=== PATIENT | female | born 1980 | race Caucasian/White ===

== ENCOUNTER → 2025-03-25 18:00 | Outpatient (CLI) | payer OTHER, SELFPAY ==
--- NOTE | 2025-03-25 18:03 | DI.MRI.S_ITS ---
PROCEDURE: MR FOOT LT WO/W CON INDICATIONS: Zina ganglioin cyst TECHNIQUE: Multiphasic, multisequence MRI of the forefoot was performed, before and after intravenous contrast administration. COMPARISON: [facility], RG, FOOT COMP MIN 3VW (LT), 01/11/2025, 18:32. FINDINGS: Image quality: Excellent. Bones and joints: Mild marrow edema of the fibula hallucal sesamoid, representing sesamoiditis. Mild degenerative changes of the 2nd tarsometatarsal, and the intermediate cuneiform and the navicular articulation, with mild subchondral marrow edema. No acute fracture. Soft tissues: Mild thickening of the central cord of the plantar fascia, partially visualized, raising concern for plantar fasciitis. The flexors, and the extensor tendons are unremarkable. Muscles are normal in signal. The Lisfranc ligament is intact. Mild 1st intermetatarsal bursitis. No Wan's neuroma. No ganglion cyst. IMPRESSION: 1. Mild fibula hallucal sesamoiditis. 2. Mild degenerative changes in the midfoot. 3. Findings concerning for plantar fasciitis, partially visualized. 4. Mild 1st intermetatarsal bursitis. 5. No ganglion cyst. Dictated by: Christine Muller M.D. on 03/26/2025 at 10:15 Approved by: Christine Muller M.D. on 03/26/2025 at 10:28
== END ==
LOC: MRI 18:02
PROVIDERS: Referring Provider Podiatrist; Visit Provider Podiatrist
DX: M25.872 Other specified joint disorders, left ankle and foot (principal); M71.572 Other bursitis, not elsewhere classified, left ankle and foot; M79.672 Pain in left foot
CPT/HCPCS: 73720; A9579